=== PATIENT | female | born 1935 | race Two or more races ===

== ENCOUNTER 2019-11-09 07:45 | Inpatient (IN) | payer OTHER ==
[~2019-11-09] VITALS: Ht 149.9 cm; Wt 62.1 kg
[2019-11-09] MEDS ORDERED: ARICEPT5 MG PO (10:24)
[2019-11-09] MEDS ORDERED: HYZAAR 100-12.1 EACH PO (10:24)
[2019-11-09] MEDS ORDERED: ZESTRIL20 MG PO (10:25)
[2019-11-09] MEDS ORDERED: SIMVASTATIN20 MG PO (10:26)
[2019-11-09] MEDS ORDERED: CALTRATE GUMMY1 EACH PO (10:26)
[2019-11-09] MEDS ORDERED: NAMENDA10 MG PO (10:26)
[2019-11-16] MEDS ORDERED: ELIQUIS2.5 MG PO (07:56)
[2019-11-16] MEDS ORDERED: PERCOCET 5-3251 EACH PO (07:56)
== END 2019-11-16 13:02 | DRG 470 ==
LOC: SURH 11-13 06:51 → O/R 11-13 06:51 → SURH 11-13 10:08
PROVIDERS: ADMIT Orthopaedic Surgery; ATTEND Orthopaedic Surgery
PROC: 0MNN0ZZ Release Right Knee Bursa and Ligament, Open Approach (ICD-10-PCS; 2019-11-13)
PROC: 0SRC0J9 Replacement of Right Knee Joint with Synthetic Substitute, Cemented, Open Approach (ICD-10-PCS; principal; 2019-11-13 07:00)
PROC: 30233N1 Transfusion of Nonautologous Red Blood Cells into Peripheral Vein, Percutaneous Approach (ICD-10-PCS; 2019-11-15)
DX: M17.11 Unilateral primary osteoarthritis, right knee (principal); M22.11 Recurrent subluxation of patella, right knee; D64.9 Anemia, unspecified

== ENCOUNTER 2019-12-18 12:52 | Emergency (ER) | payer OTHER ==
[~2019-12-18] VITALS: Ht 147.3 cm; Wt 61.7 kg
[~2019-12-18 12:52] MED LIST: ARICEPT5 MG PO; CALTRATE GUMMY1 EACH PO; ELIQUIS2.5 MG PO; HYZAAR 100-12.1 EACH PO; NAMENDA10 MG PO; PERCOCET 5-3251 EACH PO; SIMVASTATIN20 MG PO; ZESTRIL20 MG PO
[2019-12-18] MEDS ORDERED: TRAM1TAB98 PO (13:36)
[2019-12-18] MEDS ORDERED: DICLOFENAC POTA50 MG PO (13:36)
[2019-12-18] MEDS ORDERED: DONEPEZIL HCL10 MG PO (13:37)
[2019-12-18] MEDS ORDERED: AMLODIPINE BESYL5 MG PO (13:37)
[2019-12-18] MEDS ORDERED: FUROSEMIDE20 MG PO (13:37)
[2019-12-18] MEDS ORDERED: LISINOPRIL-HCT1 EAC1 PO (13:37)
[2019-12-18] MEDS ORDERED: MEMANTINE HCL10 MG PO (13:37)
[2019-12-18] MEDS ORDERED: ASA-EC81 MG PO (13:38)
[2019-12-18] MEDS ORDERED: ACETAMINOPHEN500 M1 PO (17:17)
== END 2019-12-18 18:31 | disposition home or self-care (01) ==
LOC: ER 12:52
DX: B34.9 Viral infection, unspecified (principal); Z20.828 Contact with and (suspected) exposure to other viral communicable diseases; E86.0 Dehydration

== ENCOUNTER 2020-05-21 07:15 | Inpatient (IN) | payer OTHER ==
[~2020-05-21] VITALS: Ht 152.4 cm; Wt 68.0 kg
[~2020-05-21 07:15] MED LIST changes: +ACETAMINOPHEN500 M1 PO; +AMLODIPINE BESYL5 MG PO; +ASA-EC81 MG PO; +DICLOFENAC POTA50 MG PO; +DONEPEZIL HCL10 MG PO; +FUROSEMIDE20 MG PO; +LISINOPRIL-HCT1 EAC1 PO; +MEMANTINE HCL10 MG PO; +TRAM1TAB98 PO
[2020-05-21] MEDS ORDERED: LOSARTAN-HCTZ1 EAC1 PO (10:10)
[2020-05-21] MEDS ORDERED: PANTOPRAZOLE SO20 MG (10:13)
[2020-05-27] MEDS ORDERED: AMLODIPINE BESYL5 MG (09:32)
[2020-05-27] MEDS ORDERED: SIMVASTATIN20 MG (09:33)
[2020-05-27] MEDS ORDERED: VITAMIN B-121000 MCG (09:33)
[2020-05-27] MEDS ORDERED: OMEPRAZOLE20 MG (09:33)
[2020-05-29] MEDS ORDERED: PERCOCET 5-3251 EACH PO (15:47)
[2020-05-29] MEDS ORDERED: DUI500 PO (15:47)
[2020-05-29] MEDS ORDERED: ELIQUIS2.5 MG PO (15:47)
== END 2020-05-29 16:03 | DRG 470 ==
LOC: O/R 05-27 05:55 → SURH 05-27 05:55 → EDBD 05-27 07:15 → SURH 05-27 07:15
PROVIDERS: ADMIT Orthopaedic Surgery; ATTEND Orthopaedic Surgery
PROC: 0SRD0J9 Replacement of Left Knee Joint with Synthetic Substitute, Cemented, Open Approach (ICD-10-PCS; principal; 2020-05-27 09:15)
PROC: 30233N1 Transfusion of Nonautologous Red Blood Cells into Peripheral Vein, Percutaneous Approach (ICD-10-PCS; 2020-05-28)
DX: M17.12 Unilateral primary osteoarthritis, left knee (principal); D62 Acute posthemorrhagic anemia; D56.8 Other thalassemias; G30.0 Alzheimer's disease with early onset; F02.80 Dementia in other diseases classified elsewhere, unspecified severity, without behavioral disturbance, psychotic disturbance, mood disturbance, and anxiety; I10 Essential (primary) hypertension; M81.8 Other osteoporosis without current pathological fracture

== ENCOUNTER 2024-09-05 14:03 | Inpatient (IN) | payer OTHER ==
[~2024-09-05] VITALS: Ht 162.6 cm; Wt 68.0 kg
[~2024-09-05 14:03] MED LIST changes: +AMLODIPINE BESYL5 MG; +DUI500 PO; +LOSARTAN-HCTZ1 EAC1 PO; +OMEPRAZOLE20 MG; +PANTOPRAZOLE SO20 MG; +SIMVASTATIN20 MG; +VITAMIN B-121000 MCG
[2024-09-05] MEDS ORDERED: ELIQUIS5 MG PO (14:30)
[2024-09-05] MEDS ORDERED: PANTOPRAZOLE SO40 MG PO (14:31)
[2024-09-05] MEDS ORDERED: METOPROLOL SUCC50 MG PO (14:31)
[2024-09-05] MEDS ORDERED: JARDIANCE10 MG PO (14:32)
[2024-09-05] MEDS ORDERED: SPIRONOLACTONE25 MG PO (14:33)
--- NOTE | 2024-09-05 14:33 | NUR ---
SE RECIBE FEMINA ALERTA Y ORIENTADA EN PERSONA EN AMBULANCIA EN COMPANIA DE HIJO QUIEN REFIERE PACIENTE PRESENTA DIFICULTAD AL RESPIRAR DESDE LA MANANA. AL MOMENTO DE TRIAGE PACIENTE SATURANDO 98% ROOM AIR. SE MIDEN S/V Y SE REALIZA EKG. SE UBICA PACIENTE CONECTADA A MONITOR CARDIACO Y OXIMETRIA DE PUL[place].
[2024-09-05] MEDS ORDERED: FUROsemide 40 MG/4 ML VIAL IV ONE (14:45)
[2024-09-05] MEDS ORDERED: DILTIAZEM HCL 25 MG/5 ML VIAL IV ONE ×2 (14:45→15:43)
--- NOTE | 2024-09-05 15:36 | NUR ---
PTE ALERTA Y ORIENTADA EN PERSONA EN COMPANIA DE FAMILIAR SE EDUCA A FAMILIAR SOBRE TOBIAS DE MUESTRAS Y TRATAMIENTO MEDICO ORDENADO POR MD, FAMILIAR REFIERE ENTENDER. SE ADMINISTRAN TRATAMIENTO MEDICO Y SE REALIZAN BRAD DE MUESTRAS BAJO MEDIDAS ASEPTICAS.
[2024-09-05] MEDS ORDERED: FUROsemide 40 MG/4 ML VIAL ONE (15:43)
[2024-09-05 16:08] LABS: BASO % 0.3 % (0.1-1.2); EOS # 0.06 (0.04-0.54); EOS % 0.6 % (0.7-7.0); HEMATOCRIT 31.3 % (34.1-44.9); HEMOGLOBIN 10.1 g/dL (11.2-15.7); LYMPH # 0.73 (1.18-3.74); LYMPH % 7.2 % (19.3-53.1); MEAN CORPUSCULAR HEMOGLOBIN 19.6 pg (25.6-32.2); MONO # 0.89 (0.24-0.82); MONO % 8.8 % (4.7-12.5); NEUT # 8.29 (1.56-6.13); NEUT % 82.3 % (34.0-71.1); PLATELET COUNT 171 K/uL (163-369); RED BLOOD COUNT 5.16 M/uL (3.93-5.22); RED CELL DISTRIBUTION WIDTH 22.6 % (11.6-14.4)
[2024-09-05 16:18] LABS: INR 1.17; PARTIAL THROMBOPLASTIN TIME 31.7 SECONDS (22.0-34.0); PROTHROMBIN TIME 12.6 SECONDS (9.0-11.5)
[2024-09-05 16:23] LABS: ALBUMIN 3.6 gm/dL (3.4-5.0); BILIRUBIN TOTAL 2.62 mg/dL (0.3-1.2); CALCIUM 8.8 mg/dL (8.5-10.1); CREATININE SERUM 1.16 mg/dL (0.55-1.02); GFR 44.19; GLOBULINA 3.4 G/DL (2.4-3.5); POTASSIUM 4.15 mEq/L (3.5-5.1)
[2024-09-05] MEDS ORDERED: LEVALBUTEROL HCL 1.25 MG/3 ML SOLUTION IH SCH (17:09)
[2024-09-05] MEDS ORDERED: LEVALBUTEROL HCL 1.25 MG/3 ML SOLUTION IH ONE (17:33)
[2024-09-05 17:44] LABS: ABG PH 7.481 (7.35-7.45); ABG PO2 84.9 mmHg (80-100); ABG pCO2 30.7 mmHg (35-45); BASE EXCESS 0 mmol/l; BICARBONATE 22.4 mmol/l (23-25); SaO2 97.2 %; Tco2 23.4 mmol/l
[2024-09-05 17:53] LABS: allen test SATISFACTORY; mode ROOM AIR; o2 21 %; puncture site RADIAL LEFT
[2024-09-05] MEDS ORDERED: IPRATROPIUM BROMIDE 0.5 MG/2.5 ML AMPUL.NEB IH SCH (22:22)
[2024-09-05] MEDS ORDERED: FUROsemide 20 MG/2 ML VIAL IV SCH (22:24)
[2024-09-05] MEDS ORDERED: NITROGLYCERIN IN 5 % DEXTROSE 250 ML IV SCH (22:30)
[2024-09-05] MEDS ORDERED: ACETAMINOPHEN 500 MG GEL..CAP PO PRN (22:30)
[2024-09-06] MEDS ORDERED: APIXABAN 5 MG TABLET PO SCH (05:00)
[2024-09-06 05:03] LABS: TSH 2.91 uIU/mL (0.358-3.74)
[2024-09-06] MEDS ORDERED: FUROsemide 20 MG/2 ML VIAL ONE (05:15)
[2024-09-06] MEDS ORDERED: NITROGLYCERIN IN 5 % DEXTROSE 50 MG/250 ML BOTTLE IV ONE (05:16)
[2024-09-06 07:39] LABS: URINE APPEARANCE Cloudy; URINE BILIRRUBIN Negative (NEGATIVE); URINE BLOOD Small; URINE COLOR Yellow; URINE KETONE Negative (NEGATIVE); URINE LEUKOCYTE Moderate; URINE NITRATE Negative; URINE PROTEIN 30 (NEGATIVE)
[2024-09-06 07:43] LABS: URINE EPITHELIAL CELLS 48.2 uL (0.0-38.8); URINE RBC 48.9 uL (0.0-20.8); URINE WBC 245.6 uL (0.0-23.2)
[2024-09-06 08:11] LABS: URINE BACTERIA > 9821.2 uL (0.0-1933); URINE GLUCOSE >=1000 MG/DL (NEGATIVE)
[2024-09-06] MEDS ORDERED: MEMANTINE HCL 10 MG TABLET PO SCH (09:00)
[2024-09-06] MEDS ORDERED: FAMOTIDINE/PF 20 MG in 0.9 % SODIUM CHLORIDE 8 ML IV PUSH SCH (09:00)
[2024-09-06] MEDS ORDERED: METOPROLOL SUCCINATE 25 MG TAB.SR.24H PO SCH (09:00)
[2024-09-06 15:53] VITALS: BP 136/76; O2SAT 95
[2024-09-06] MEDS ORDERED: DONEPEZIL HCL 10 MG TABLET PO SCH (17:00)
[2024-09-06 17:32] VITALS: BP 167/83; O2SAT 100
[2024-09-07 00:13] VITALS: BP 134/76; O2SAT 97
[2024-09-07] MEDS ORDERED: NITROGLYCERIN IN 5 % DEXTROSE 250 ML IV SCH (08:00)
[2024-09-07 08:55] VITALS: BP 145/97; O2SAT 100
[2024-09-07 14:09] VITALS: BP 134/71; O2SAT 100
[2024-09-07] MEDS ORDERED: MEMANTINE HCL 10 MG TABLET PO SCH (17:00)
[2024-09-07] MEDS ORDERED: METOPROLOL SUCCINATE 25 MG TAB.SR.24H PO SCH (17:00)
[2024-09-07 18:03] VITALS: BP 164/85; O2SAT 99
[2024-09-07] MEDS ORDERED: FUROsemide 20 MG/2 ML VIAL IV SCH (21:00)
[2024-09-08 00:35] VITALS: BP 133/65; O2SAT 98
[2024-09-08 08:00] VITALS: BP 112/60; O2SAT 98
[2024-09-08 11:42] LABS: ALBUMIN 3.7 gm/dL (3.4-5.0); BILIRUBIN TOTAL 1.5 mg/dL (0.3-1.2); CALCIUM 8.9 mg/dL (8.5-10.1); CREATININE SERUM 1.4 mg/dL (0.55-1.02); GFR 35.57; GLOBULINA 3.2 G/DL (2.4-3.5); MAGNESIUM 2.3 mg/dL (1.8-2.4); POTASSIUM 4.08 mEq/L (3.5-5.1); TOTAL PROTEIN 6.9 gm/dL (6.4-8.2)
[2024-09-08 11:47] LABS: BASO % 0.9 % (0.1-1.2); EOS # 0.22 (0.04-0.54); EOS % 2.5 % (0.7-7.0); HEMATOCRIT 34.5 % (34.1-44.9); HEMOGLOBIN 11.1 g/dL (11.2-15.7); LYMPH # 0.93 (1.18-3.74); LYMPH % 10.6 % (19.3-53.1); MEAN CORPUSCULAR HEMOGLOBIN 19.3 pg (25.6-32.2); MONO # 0.47 (0.24-0.82); MONO % 5.4 % (4.7-12.5); NEUT # 6.99 (1.56-6.13); PLATELET COUNT 206 K/uL (163-369); RED BLOOD COUNT 5.76 M/uL (3.93-5.22)
[2024-09-08 14:03] VITALS: BP 152/79; O2SAT 92
[2024-09-08 14:42] VITALS: O2SAT 97
[2024-09-08] MEDS ORDERED: ACETAMINOPHEN 500 MG GEL..CAP PO PRN (16:00)
[2024-09-08 16:56] VITALS: BP 159/93
[2024-09-08 22:08] VITALS: O2SAT 99
[2024-09-09 01:00] VITALS: O2SAT 99
[2024-09-09 02:14] VITALS: BP 129/77; O2SAT 96
[2024-09-09 05:00] VITALS: O2SAT 99
[2024-09-09] MEDS ORDERED: ELIQUIS5 MG PO (07:31)
[2024-09-09] MEDS ORDERED: ARICEPT10 MG PO (07:31)
[2024-09-09] MEDS ORDERED: TOPROL XL50 M1 PO (07:32)
[2024-09-09] MEDS ORDERED: LASIX20 MG PO (07:32)
[2024-09-09] MEDS ORDERED: MEMANTINE HCL10 MG PO (07:32)
[2024-09-09 07:40] LABS: BASO % 0.7 % (0.1-1.2); EOS # 0.18 (0.04-0.54); EOS % 2.2 % (0.7-7.0); HEMATOCRIT 34.6 % (34.1-44.9); HEMOGLOBIN 11.2 g/dL (11.2-15.7); LYMPH # 1.33 (1.18-3.74); LYMPH % 16.1 % (19.3-53.1); MEAN CORPUSCULAR HEMOGLOBIN 19.4 pg (25.6-32.2); MONO # 0.49 (0.24-0.82); MONO % 5.9 % (4.7-12.5); NEUT # 6.17 (1.56-6.13); NEUT % 74.6 % (34.0-71.1); PLATELET COUNT 258 K/uL (163-369); RED BLOOD COUNT 5.76 M/uL (3.93-5.22); RED CELL DISTRIBUTION WIDTH 21.8 % (11.6-14.4)
[2024-09-09 08:37] VITALS: BP 130/70; O2SAT 96
[2024-09-09] MEDS ORDERED: METOPROLOL SUCCINATE 50 MG TAB.SR.24H PO SCH (09:00)
[2024-09-09] MEDS ORDERED: FUROsemide 20 MG/2 ML VIAL IV SCH (09:00)
== END 2024-09-09 10:54 | disposition home or self-care (01) | DRG 281 ==
LOC: ER 14:03 → ICU-2 22:26 → SEC-K 22:26 → O/R 09-06 09:20 → ICU-2 09-06 09:21 → SEC-K 09-07 12:32 → MEDI 09-07 23:24 → SEC-K 09-07 23:43 → MEDI 09-08 13:38
PROVIDERS: General Practice; Internal Medicine; ADMIT Internal Medicine; ATTEND Internal Medicine
PROC: B246ZZZ Ultrasonography of Right and Left Heart (ICD-10-PCS; principal; 2024-09-05)
PROC: 3E0F7GC Introduction of Other Therapeutic Substance into Respiratory Tract, Via Natural or Artificial Opening (ICD-10-PCS; 2024-09-07)
PROC: 4A12X4Z Monitoring of Cardiac Electrical Activity, External Approach (ICD-10-PCS; 2024-09-08)
DX: I21.4 Non-ST elevation (NSTEMI) myocardial infarction (principal); I48.20 Chronic atrial fibrillation, unspecified; N17.9 Acute kidney failure, unspecified; N39.0 Urinary tract infection, site not specified; I50.9 Heart failure, unspecified; I11.0 Hypertensive heart disease with heart failure; G30.9 Alzheimer's disease, unspecified; F02.80 Dementia in other diseases classified elsewhere, unspecified severity, without behavioral disturbance, psychotic disturbance, mood disturbance, and anxiety; N18.9 Chronic kidney disease, unspecified